=== PATIENT | male | born 1960 | race Caucasian/White ===

== ENCOUNTER → 2017-08-19 | Outpatient (CLI) | payer MEDICARE ==
--- NOTE | 2017-08-19 13:54 | CT ---
EXAM DESCRIPTION: Abdomen/Pelvis w/wo Contrast: Computed Tomography. CLINICAL HISTORY: INCARCERATED UMBILICAL HERNIA COMPARISON: None. TECHNIQUE: Spiral-axial scans at 5.0 mm intervals through the abdomen and pelvis before and after standard dose nonionic IV contrast. No oral contrast. Coronal and sagittal 2.0 mm reconstructions with 5 minute delay. 5 mm Delayed helical-axial scans, liver through the pubic symphysis. No adverse reactions. Total Exam DLP 3911.74 mGy - cm. This exam was performed according to our departmental CT dose-optimization program which includes automated exposure control, adjustment of the mA and/or kV according to patient size and/or use of iterative reconstruction technique; to reduce radiation dose to as low as reasonably achievable (ALARA). FINDINGS: Abdominal Wall/Back Soft Tissues: Umbilical hernia with sac containing mesentery abutting the posterior umbilicus. The neck of the hernia measures 1.6 cm transverse and 1.7 cm craniocaudal. Hernia dominguez are thin with no fluid collection or fatty stranding. No bowel in the hernia. Bilateral fatty inguinal hernias partially seen but not containing bowel. Lung bases and pleura: Minimal pleural thickening left base. No pleural effusion. Liver, Stomach, Spleen, Adrenal Glands: Fatty density in the liver. No focal lesions. Stomach unremarkable. Other solid organs are negative.. Pancreas, Gallbladder, Ducts: Gallbladder not well visualized. Normal caliber of the common bile duct. Pancreas negative. Kidneys and Ureters: 3.5 cm cyst upper pole right kidney and subcentimeter cyst abutting the lateral mid kidney. 3 cm and 2 cm cyst abutting the lower pole of the left kidney and a 3 cm cyst abutting the upper pole. No hydronephrosis or perinephric fluid. Bilateral ureters are negative. Mesentery: No fatty stranding in the abdomen or in the hernia. No free air or ascites. Aorta: Atherosclerotic calcification of the aorta and the origins of the major branch vessels. More calcification distally no para-aortic lesions. Small Bowel: Unremarkable. Terminal Ileum/Cecum: Negative. Appendix not seen. Colon: Small caliber throughout. Pelvic Organs: Distal ureters are negative. No radiodense stones in the urinary bladder. Spine and Bony Pelvis: Multiple levels of disc space narrowing. Anterior endplate ridging in the thoracic spine. Thoracolumbar levoscoliosis. Arthrosis right hip joint. IMPRESSION: 1. Umbilical hernia containing fat only with no fluid collection or fatty edema. Hernial neck measures 1.7 x 1.6 cm. No bowel in superior bilateral inguinal hernias. 2. Fatty infiltration of the liver but no hepatomegaly and no ascites. 3. Multiple bilateral renal cysts. No hydronephrosis with normal enhancement and normal caliber of the ureters. No radiodense stones. No radiodense stones in the urinary bladder. Electronically signed by: Lew Barrett MD 08/19/2017 1:53 PM CDT
== END ==
LOC: CT 08:17
PROVIDERS: ATTEND Surgery
DX: K42.0 Umbilical hernia with obstruction, without gangrene (principal); N28.1 Cyst of kidney, acquired

== ENCOUNTER → 2018-01-19 | Outpatient (CLI) | payer MEDICARE | LOC: GMAL 12:00 | PROVIDERS: ATTEND Family Medicine | DX: Z12.5 Encounter for screening for malignant neoplasm of prostate (principal) ==